=== PATIENT | male | born 1950 | race Two or more races ===

== ENCOUNTER 2017-02-23 02:34 | Inpatient (IN) | payer MEDICARE, MEDICAID ==
[~2017-02-23] VITALS: Ht 172.7 cm; Wt 63.5 kg
[~2017-02-23 02:34] MED LIST: AMAN100C16 PO
--- NOTE | 2017-02-23 02:40 | NUR ---
TO BED PT BIBA FROM [facility], PT C/O LOWER ABD PAIN X 14 HOURS PT DENIES N/V/D. NAD NOTED. VSS. BREATHING EVEN AND UNLABORED. PLACED ON CARDIAC AND VS MONITORING. GOWNED. COMFORT MEASURES RENDERED. AWAITING FOR ER MD GUTHRIE.
[2017-02-23] MEDS ORDERED: NYST15CR TP (03:03)
[2017-02-23] MEDS ORDERED: AMLO2.5T PO (03:03)
[2017-02-23] MEDS ORDERED: TAMS0.4C34 PO (03:03)
[2017-02-23] MEDS ORDERED: PROP10TA10 PO (03:03)
[2017-02-23] MEDS ORDERED: RANI150T8 PO (03:03)
[2017-02-23] MEDS ORDERED: FINA5TAB11 PO (03:03)
[2017-02-23] MEDS ORDERED: ONDANSETRON HCL/PF 4 MG/2 ML VIAL ONE (03:28)
[2017-02-23] MEDS ORDERED: MORPHINE SULFATE INJ 2 MG/ML DISP.SYRIN ONE (03:29)
[2017-02-23] MEDS ORDERED: MORPHINE SULFATE INJ 4 MG/ML DISP.SYRIN ONE (03:29)
[2017-02-23] MEDS ORDERED: MORPHINE SULFATE INJ 2 MG/ML DISP.SYRIN IV ONE (03:30)
[2017-02-23] MEDS ORDERED: ONDANSETRON HCL/PF 4 MG/2 ML VIAL IVP ONE (03:30)
--- NOTE | 2017-02-23 03:30 | NUR ---
started a saline lock on the rac g20, blood drawn and sent to lab.
--- NOTE | 2017-02-23 03:34 | NUR ---
medicated patient as ordered by Dr [place].
[2017-02-23 03:37] LABS: BASOPHILS # (AUTO) 0.1 /CMM (0.0-0.2); EOSINOPHILS # (AUTO) 0.4 /CMM (0.0-0.7); EOSINOPHILS % (AUTO) 5.6 % (0.0-6.0); HEMATOCRIT 44 % (39-51); HEMOGLOBIN 14.8 g/dL (13.5-17.5); LYMPHOCYTES # (AUTO) 1.2 /CMM (0.8-4.8); LYMPHOCYTES % (AUTO) 17.8 % (20.0-44.0); MEAN CORPUSCULAR HEMOGLOBIN 31 PG (26.0-33.0); MEAN CORPUSCULAR HGB CONC 34 g/dl (31.0-36.0); MEAN CORPUSCULAR VOLUME 92 fL (80-96); MONOCYTES # (AUTO) 0.5 /CMM (0.1-1.30); MONOCYTES % (AUTO) 7.9 % (2.0-12.0); NEUTROPHILS # (AUTO) 4.5 /CMM (1.8-8.9); NEUTROPHILS % (AUTO) 67.7 % (43.0-81.0); PLATELET COUNT (AUTO) 162 /CMM (150-450); RDW COEFFICIENT OF VARIATION 13.3 (11.5-15.0); WHITE BLOOD COUNT (AUTO) 6.6 K/uL (4.3-11.0)
[2017-02-23 03:45] LABS: APPEARANCE,URINE CLEAR (CLEAR); BILIRUBIN,URINE NEGATIVE (NEGATIVE); BLOOD, URINE NEGATIVE Ery/uL (NEGATIVE); COLOR,URINE YELLOW (YELLOW); KETONES,URINE NEGATIVE (NEGATIVE); LEUKOCYTE ESTERASE ,URINE TRACE (NEGATIVE); NITRITE, URINE NEGATIVE (NEGATIVE); PH,URINE 6.5 (5.0-8.0); PROTEIN,URINE NEGATIVE (NEGATIVE); UGLUCOSE NEGATIVE (NEGATIVE); UROBILINOGEN,URINE 0.2 EU/dL (0.2)
[2017-02-23 03:54] LABS: INR 0.99 (0.87-1.13); PROTHROMBIN TIME 10.6 SECS (9.5-12.7)
[2017-02-23 04:42] LABS: CALCIUM, SERUM 9.1 mg/dL (8.5-10.1); CREATININE 0.8 mg/dL (0.6-1.3)
[2017-02-23 04:48] LABS: ALBUMIN 3.9 g/dL (3.4-5.0); BILIRUBIN,DIRECT 0.1 mg/dL (0.0-0.2); BILIRUBIN,TOTAL 0.8 mg/dL (0.2-1.0)
[2017-02-23] MEDS ORDERED: IV NS 0.9% 1,000 ML BAG IV ONE (05:00)
[2017-02-23] MEDS ORDERED: IV NS 0.9% 250 ML IV ONE (05:03)
[2017-02-23] MEDS ORDERED: IOHEXOL-300 100 ML VIAL IV ONE (05:03)
[2017-02-23 05:16] LABS: BACTERIA,URINE None seen /HPF (None Seen); RBC,URINE NONE SEEN /HPF (0-2); SQUAMOUS EPITHELIAL CELL,UR Rare /HPF (None Seen)
[2017-02-23] MEDS ORDERED: TRIA15CR3 TP (07:26)
[2017-02-23] MEDS ORDERED: CARB-93 PO (07:26)
--- NOTE | 2017-02-23 08:30 | NUR ---
REPORT GIVEN TO SNOW CARPENTER FOR ADMISSION. PATIENT TRANSPORTED TO ROOM 324-2 VIA STRETCHER WITH EMT.
--- NOTE | 2017-02-23 08:40 | NUR ---
JAYDEN MS NOTES RECEIVED PATIENT FROM ER, PATIENT ON A GURNEY, AWAKE AND VERBALLY RESPONSIVE. PATIENT A/OX3, NO APPARENT DISTRESS NOTED, PATIENT DENIES PAIN AT THIS TIME. RESPIRATIONS EVEN AND UNLABORED, DENIES SOB. ALL NEEDS MET, ORIENTED TO UNIT. PATIENT WITH BP 0F 150/100 WILL F/U WITH AWAITING ADMISSION ORDERS FROM DR ARCINIEGA. Addendum: 02/23/17 at 1036 by SNOW BANDA RN SKIN CLEAR AND INTACT.
[2017-02-23 09:30] VITALS: BP 154/115
--- NOTE | 2017-02-23 10:20 | NUR ---
RN MS NOTES CALLED DR ARCINIEGA'S OFFICE, SPOKE TO ROYAL, SHE WILL LIAN FIGUEROA. AWAITING CALL BACK.
[2017-02-23] MEDS ORDERED: HYDROMORPHONE 1 MG/1 ML DISP.SYRIN IV PRN (13:00)
[2017-02-23] MEDS: PANTOPRAZOLE 40 MG VIAL IV SCH (14:39)
[2017-02-23] MEDS ORDERED: TRIAMCINOLONE ACETONIDE 0.025% 15 GM TUBE TP PRN (15:00)
[2017-02-23 15:36] LABS: LIPASE 82 U/L (73-393)
[2017-02-23 15:43] LABS: AMYLASE 37 U/L (25-115)
[2017-02-23 16:00] VITALS: BP 103/63
[2017-02-23] MEDS: PROPRANOLOL HCL 10 MG TABLET PO SCH (17:00)
[2017-02-23] MEDS ORDERED: GADOVERSETAMIDE 5 MMOL/10 ML VIAL IJ ONE (19:01)
[2017-02-23] MEDS ORDERED: GADOVERSETAMIDE 2.5 MMOL/5 ML VIAL IJ ONE (19:01)
[2017-02-23] MEDS: CARBIDOPA/LEVODOPA 25/100 MG 1 UDTAB PO SCH (19:04)
--- NOTE | 2017-02-23 19:10 | NUR ---
MS RN NOTES RECEIVED SITTING ON EDGE OF BED,NOTED INVOLUNTARY MOVEMENT OF BOTH ARMS,WITH KNOWN HX OF PARKINSON.APPEARS WEAK.ENCOURAGE TO USE CALL LIGHT FOR ASSISTANCE.BED ALARM TRIGGERED.SALINE LOCK RIGHT AC INTACT AND PATENT.CALL LIGHT IN REACH,NEEDS ANTICIPATED.
--- NOTE | 2017-02-23 19:24 | NUR ---
RN MS CLOSING NOTES PATIENT IN BED, VERBALLY RESPONSIVE. NO APPARENT DISTRESS NOTED, DENIES PAIN, DENIES SOB. ALL DUE MEDS GIVEN ALL NEEDS MET, CALL LIGHT WITHIN REACH. RAC IV LINE PATENT, MRI DONE. WILL ENDORSE CARE TO PM SHIFT.
[2017-02-23 20:00] VITALS: BP 112/77
--- NOTE | 2017-02-23 21:00 | NUR ---
MS RN NOTES MD VISIT SEEN BY DR DIAMOND.WITH NEW ORDERS NOTED AND CARRIED OUT.
--- NOTE | 2017-02-23 22:00 | NUR ---
MS RN NOTES DUE PO MEDS ADMINISTERED,TAKEN WELL.NEGATIVE FOR ASPIRATION
[2017-02-23] MEDS: ATORVASTATIN 10 MG TABLET PO SCH (22:07)
[2017-02-23] MEDS: TAMSULOSIN 0.4 MG CAP.SR.24H PO SCH (22:07)
[2017-02-23] MEDS: AMLODIPINE BESYLATE 2.5 MG TABLET PO SCH (22:08)
[2017-02-23] MEDS: FINASTERIDE (5 MG) 5 MG TABLET PO SCH (22:08)
--- NOTE | 2017-02-23 22:30 | NUR ---
MS RN NOTES FAMILY INFORMED ABOUT THE PLAN,PATIENT GOING FOR EGD TOMORROW.CONSENT SIGNED BY PATIENT.INSTRUCTED NPO AFTER MIDNIGHT.
[2017-02-24 06:22] LABS: BASOPHILS % (AUTO) 0.4 % (0.0-2.0); EOSINOPHILS # (AUTO) 0.4 /CMM (0.0-0.7); EOSINOPHILS % (AUTO) 6.1 % (0.0-6.0); HEMATOCRIT 41 % (39-51); HEMOGLOBIN 13.9 g/dL (13.5-17.5); LYMPHOCYTES # (AUTO) 1.3 /CMM (0.8-4.8); LYMPHOCYTES % (AUTO) 22.4 % (20.0-44.0); MEAN CORPUSCULAR HEMOGLOBIN 31 PG (26.0-33.0); MEAN CORPUSCULAR HGB CONC 34 g/dl (31.0-36.0); MEAN CORPUSCULAR VOLUME 92 fL (80-96); MONOCYTES # (AUTO) 0.6 /CMM (0.1-1.30); MONOCYTES % (AUTO) 9.8 % (2.0-12.0); NEUTROPHILS # (AUTO) 3.7 /CMM (1.8-8.9); NEUTROPHILS % (AUTO) 61.3 % (43.0-81.0); PLATELET COUNT (AUTO) 163 /CMM (150-450); RDW COEFFICIENT OF VARIATION 13.3 (11.5-15.0); RED BLOOD CELL COUNT(AUTO) 4.45 MIL/uL (4.5-6.0)
[2017-02-24 06:40] LABS: CALCIUM, SERUM 8.9 mg/dL (8.5-10.1); CREATININE 0.8 mg/dL (0.6-1.3); POTASSIUM 4.1 mmol/L (3.5-5.1)
--- NOTE | 2017-02-24 07:20 | NUR ---
MS RN OPENING NOTES RECEIVE PT FROM NIGHTSHIFT NURSE IN STABLE CONDITION. PT IS A/O X2-3, WITH PERIODS OF FORGETFULNESS. NO SOB OR SIGNS OF DISTRESS NOTED. BREATHING IS EVEN AND UNLABORED. PT. IS ON RA AND SATING WELL @98%. NPO DIET MAINTAINED SINCE MIDNIGHT FOR SCHEDULED EGD LATER THIS AFTERNOON. IV PRESENT IN RIGHT AC 20G. IV IS PATENT TO NS FLUSH AND INTACT. NO REDNESS OR SIGNS OF INFILTRATION NOTED. BED IN LOW LOCKED POSITION, SIDE RAILS UP X3, CALL LIGHT WITHIN EASY REACH. WILL CONTINUE TO MONITOR.
[2017-02-24 07:49] VITALS: BP 132/78
[2017-02-24] MEDS: PROPRANOLOL HCL 10 MG TABLET PO SCH ×3 (08:44→17:00)
[2017-02-24] MEDS: CARBIDOPA/LEVODOPA 25/100 MG 1 UDTAB PO SCH ×3 (08:44→17:00)
[2017-02-24] MEDS: PANTOPRAZOLE 40 MG VIAL IV SCH (09:15)
[2017-02-24] MEDS: NYSTATIN CREAM 15 GM TUBE TP SCH (09:16)
--- NOTE | 2017-02-24 09:26 | NUR ---
MS RN NOTES REQUEST FORM FOR THE PT'S COLONOSCOPY RESULTS WAS FAXED TO [facility]. SEVERAL ATTEMPTS AND CALLS HAVE BEEN MADE TO THEIR MEDICAL RECORDS DEPARTMENT IN REGARDS TO THESE RESULTS. NO ONE HAS RESPONDED TO MY FOLLOWUP CALLS OR MESSAGES.
[2017-02-24 16:01] VITALS: BP 140/82
--- NOTE | 2017-02-24 16:45 | NUR ---
MS RN NOTES PT. TAKEN DOWN FOR SCHEDULED EGD
--- NOTE | 2017-02-24 18:07 | NUR ---
MS RN NOTES PT. BACK FROM EGD PROCEDURE. ORDERS FROM DR. GARDINER NOTED. WILL CARRY OUT NEW ORDERS
--- NOTE | 2017-02-24 18:46 | NUR ---
MS RN CLOSING NOTES PT IN STABLE CONDITION AFTER EGD PROCEDURE. VITAL SIGNS WNL. DIET WAS ADVANCED TO 2G NA. PT IS TOLERATING DIET WELL. ALL NEEDS WERE MET DURING SHIFT AND ORDERS CARRIED OUT ACCORDINGLY. ALL SAFETY MEASURES IN PLACE. WILL ENDORSE TO NIGHTSHIFT NURSE FOR KATY
--- NOTE | 2017-02-24 19:35 | NUR ---
MS RN INITIAL NOTES REPORT WAS RECEIVED BY DANI. PT IS IN BED EATING DINNER. A/O X2, FORGETFUL. ABLE TO MAKE NEEDS KNOWN. BREATHING EVENLY AND UNLABORED AT ROOM AIR SATING AT 97%. PT IS S/P EGD, DENIES PAIN. IV ACCESS IS INTACT AND PATENT. BED IS IN LOW AND LOCKED POSITION, SIDE RAILS UP X3, CALL LIGHT WITHIN REACH. WILL CONTINUE TO MONITOR PT
[2017-02-24 20:00] VITALS: BP 104/60
[2017-02-24] MEDS: TAMSULOSIN 0.4 MG CAP.SR.24H PO SCH (21:18)
[2017-02-24] MEDS: ATORVASTATIN 10 MG TABLET PO SCH (21:18)
[2017-02-24] MEDS: FINASTERIDE (5 MG) 5 MG TABLET PO SCH (21:18)
[2017-02-24] MEDS: AMLODIPINE BESYLATE 2.5 MG TABLET PO SCH (21:26)
--- NOTE | 2017-02-24 21:30 | NUR ---
NORVASC WAS HELD, PT BP 104/60 PULSE 69
--- NOTE | 2017-02-25 06:20 | NUR ---
MS RN CLOSING NOTES PT IS IN BED RESTING. NO SIGNS OF SOB OR DISTRESS, BREATHING EVENLY AND UNLABORED ON ROOM AIR. DENIES PAIN. ALL NEEDS WERE ANTICIPATED AND MET. BED IS IN LOW AND LOCKED POSITION, CALL LIGHT IS WITHIN REACH. WILL ENDORSE TO DAY SHIFT.
--- NOTE | 2017-02-25 07:50 | NUR ---
RN OPENING NOTES RECEIVED PATIENT RESTING COMFORTABLY IN BED WITH EYES CLOSED. PATIENT IS EASILY AROUSABLE. PATIENT IS AOX2-3 WITH FORGETFULNESS. PATIENT HAS TREMORS D/T PARKINSON'S. PATIENT DENIES ANY PAIN AT THIS TIME. DENIES SOB. RESPIRATIONS APPEAR EVEN AND UNLABORED. NO S/S OF ACUTE DISTRESS. IV ACCES ON THE RIGHT FOREARM 22G. IV PATENT AND INTACT. NO S/S OF INFILTRATION. AWAITING EGD RESULTS. BED LOCKED IN THE LOWEST POSITION WITH SIDERAILS UP X2. CALL LIGHT WITHIN REACH. WILL CONTINUE TO MONITOR, ASSESS AND EDUCATE PATIENT THROUGHOUT SHIFT.
[2017-02-25 08:00] VITALS: BP 152/98
[2017-02-25] MEDS: CARBIDOPA/LEVODOPA 25/100 MG 1 UDTAB PO SCH ×3 (08:45→17:25)
[2017-02-25] MEDS: PANTOPRAZOLE 40 MG VIAL IV SCH (08:46)
[2017-02-25] MEDS: NYSTATIN CREAM 15 GM TUBE TP SCH (08:46)
[2017-02-25] MEDS: PROPRANOLOL HCL 10 MG TABLET PO SCH ×3 (08:46→17:26)
[2017-02-25 11:12] LABS: AFP, TUMOR MARKER 1.5 ng/mL (0.0-8.3)
--- NOTE | 2017-02-25 13:51 | NUR ---
RN NON ADMIN NOTES PATIENT BP 126/76 HR 56. HOLD MED IF HR <60.
--- NOTE | 2017-02-25 13:52 | NUR ---
RN NOTES PATIENT SEEN BY DR. ARCINIEGA. VERBAL ORDERS GIVEN TO BEGIN LOW MOLECULAR HEPARIN 1MEQ/KG. ORDER FOR 60MEQ Q12HR. WILL CARRY OUT ORDERS.
[2017-02-25 16:00] VITALS: BP 123/73
--- NOTE | 2017-02-25 16:25 | NUR ---
RN NOTES CALLED DR. ARCINIEGA TO VERIFY HEPARIN ORDERS. DR. ARCINIEGA DID NOT RETURN CALL BUT PLACED ORDER FOR LOVENOX 60MG Q12HR. WILL NOT CARRY OUT PREVIOUS VERBAL ORDER.
--- NOTE | 2017-02-25 19:24 | NUR ---
RN CLOSING NOTES PATIENT IS RESTING COMFORTABLE IN BED. PATIENT DENIES ANY PAIN. DENIES SOB. RESPIRATION EVEN AND UNLABORED. PATIENT IS AOX2-3 WITH FORGETFULNESS. PATIENT ABLE TO FOLLOW COMMANDS. ALL NEEDS MET DURRING SHIFT. ALL MEDS GIVEN APPROPRIATE. BED LOCKED IN THE LOWEST POSITION WITH SIDE RAILS UP X2. CALL LIGHT WITHIN REACH. REPORT TO BE GIVEN TO NIGHT RN FOR KATY.
--- NOTE | 2017-02-25 19:44 | NUR ---
MS/RN OPENING NOTES PATIENT IN BED, HOB ELEVATED, ALERT, ORIENTED X2. REQUIRE ASSISTANCE AND REMINDERS , ABLE TO WALK WITH ASSISTANCE, REMINDED TO USE CALL LIGHTS. WILL CONTINUE TO MONITOR. OFFERED FLUIDS.
[2017-02-25 20:00] VITALS: BP 113/71
[2017-02-25] MEDS: ENOXAPARIN SODIUM 60 MG/0.6 ML DISP.SYRIN SQ SCH (20:48)
[2017-02-25 21:04] VITALS: BP 113/71
[2017-02-25] MEDS: AMLODIPINE BESYLATE 2.5 MG TABLET PO SCH (21:06)
[2017-02-25] MEDS: TAMSULOSIN 0.4 MG CAP.SR.24H PO SCH (21:09)
[2017-02-25] MEDS: FINASTERIDE (5 MG) 5 MG TABLET PO SCH (21:09)
[2017-02-25] MEDS: ATORVASTATIN 10 MG TABLET PO SCH (21:15)
--- NOTE | 2017-02-26 07:25 | NUR ---
RN NOTES PT IS SLEEPING COMFORTABLY IN BED. ON RA, NO SIGNS OF DISTRESS OR SOB. IV ON RFA INTACT AND PATENT, SL. SAFETY MEASURES ARE IN PLACE, CALL LIGHT IS IN REACH. WILL CONTINUE TO MONITOR.
--- NOTE | 2017-02-26 07:38 | NUR ---
ms/rn opening notes patient in bed, resting comfortably w/ no s/s of discomfort. Able to sleep atleast 6 hours. endorse to am rn regarding shaylee. bed in lock position, call lights within reach. respiration even and unlabored.
[2017-02-26 08:00] VITALS: BP 166/88
[2017-02-26 08:22] VITALS: BP 166/88
[2017-02-26] MEDS: CARBIDOPA/LEVODOPA 25/100 MG 1 UDTAB PO SCH ×3 (08:30→16:25)
[2017-02-26] MEDS: PANTOPRAZOLE 40 MG VIAL IV SCH (08:30)
[2017-02-26] MEDS: PROPRANOLOL HCL 10 MG TABLET PO SCH ×3 (08:30→16:25)
[2017-02-26] MEDS: ENOXAPARIN SODIUM 60 MG/0.6 ML DISP.SYRIN SQ SCH ×2 (08:32→21:43)
[2017-02-26] MEDS: NYSTATIN CREAM 15 GM TUBE TP SCH (08:33)
[2017-02-26 16:00] VITALS: BP 155/72
--- NOTE | 2017-02-26 18:42 | NUR ---
RN NOTES PT IS SITTING COMFORTABLY IN BED, ALERT AND ORIENTED. NO SIGNS OF DISTRESS OR PAIN NOTED. PT ON RA, SATING 97, SOB, RESPIRATIONS EVEN AND UNLABORED. IV ON RFA INTACT AND PATENT. ALL MEDS WERE GIVEN ORDERED AND PT NEEDS MET. SAFETY MEASURES ARE IN PLACE AND CALL LIGHT IS IN REACH. WILL ENDORSE TO DOWEL INSERTING MACHINE OPERATOR RN FOR CONTINUITY OF CARE.
--- NOTE | 2017-02-26 19:25 | NUR ---
MS/RN NOTES RECEIVED PT. LYING IN BED. AWAKE, ALERT AND ORIENTED X2. BREATHING EVEN AND UNLABORED ON ROOM AIR. NO SOB, RESPIRATORY DISTRESS OR COMPLAINTS OF PAIN NOTED AT THIS TIME. PT. WITH RIGHT FOREARM 22 GAUGE IV SALINE LOCK PRESENT, PATENT AND INTACT. BED IN LOWEST POSITION, CALL LIGHT WITHIN REACH, SIDE RAILS UP X2, WILL CONTINUE TO MONITOR.
[2017-02-26 20:00] VITALS: BP 150/82
[2017-02-26] MEDS: FINASTERIDE (5 MG) 5 MG TABLET PO SCH (21:42)
[2017-02-26] MEDS: AMLODIPINE BESYLATE 2.5 MG TABLET PO SCH (21:42)
[2017-02-26] MEDS: ATORVASTATIN 10 MG TABLET PO SCH (21:42)
[2017-02-26] MEDS: TAMSULOSIN 0.4 MG CAP.SR.24H PO SCH (21:42)
--- NOTE | 2017-02-27 06:34 | NUR ---
MS/RN NOTES PT. IS LYING IN BED RESTING. BREATHING EVEN AND UNLABORED ON ROOM AIR. NO SOB, RESPIRATORY DISTRESS OR COMPLAINTS OF PAIN NOTED AT THIS TIME. PT. WITH RIGHT FOREARM 22 GAUGE IV SALINE LOCK PRESENT, PATENT AND INTACT. ALL PT. NEEDS MET. BED IN LOWEST POSITION, CALL LIGHT WITHIN REACH, SIDE RAILS UP X2, WILL ENDORSE TO DAYSHIFT NURSE FOR CONTINUITY OF CARE.
--- NOTE | 2017-02-27 07:10 | NUR ---
RN MS NOTES PATIENT ALERT AND ORIENTED X2 WITH EPISODES OF CONFUSION, NO S/SX OF DISTRESS NOTED, DENIES PAIN OR DISCOMFORT NOTED, PIV PATENT AND FLUSHES WELL, NEEDS ATTENDED AND ANTICIPATED, CALL LIGHT WITHIN REACH, BED LOW AND LOCKED, SIDERAILS X2 UP, BED ALARM ON, WILL CONTINUE TO MONITOR.
[2017-02-27 08:00] VITALS: BP 93/57
[2017-02-27] MEDS: PROPRANOLOL HCL 10 MG TABLET PO SCH ×3 (08:41→16:53)
[2017-02-27] MEDS: PANTOPRAZOLE 40 MG VIAL IV SCH (08:41)
[2017-02-27] MEDS: CARBIDOPA/LEVODOPA 25/100 MG 1 UDTAB PO SCH ×3 (08:41→16:52)
[2017-02-27] MEDS: ENOXAPARIN SODIUM 60 MG/0.6 ML DISP.SYRIN SQ SCH ×2 (08:46→21:27)
[2017-02-27] MEDS: NYSTATIN CREAM 15 GM TUBE TP SCH (08:48)
[2017-02-27 16:00] VITALS: BP 148/60
--- NOTE | 2017-02-27 18:26 | NUR ---
RN MS NOTES PATIENT IS RESTING COMFORTABLY IN BED. DENIES PAIN, NO SOB NOTED. RESPIRATION EVEN AND UNLABORED. PATIENT IS AOX2-3 WITH FORGETFULNESS. PATIENT ABLE TO FOLLOW COMMANDS. ALL NEEDS ATTENDED AND MET, ALL MEDS GIVEN APPROPRIATE. BED LOCKED IN THE LOWEST POSITION WITH SIDE RAILS UP X2. CALL LIGHT WITHIN REACH. WILL ENDORSE TO SUPERVISOR PRESSING DEPARTMENT FOR KATY.
--- NOTE | 2017-02-27 19:30 | NUR ---
MS RN OPENING NOTES: PATIENT IN BED, AOX2, ON ROOM AIR, BREATHING EVEN AND UNLABORED. BREATH SOUNDS CLEAR TO AUSCULTATION. APPEARS CALM AND DENIES PAIN. PIV OVER RFA G22 INTACT AND PATENT TO FLUSH. PROVIDED FOR COMFORT AND SAFETY. BED IN LOWEST AND LOCKED POSITION, SIDERAILS UP X2. CALL LIGHT WITHIN REACH. WILL CONT TO MONITOR.
[2017-02-27 20:00] VITALS: BP 139/78
[2017-02-27] MEDS: TAMSULOSIN 0.4 MG CAP.SR.24H PO SCH (21:26)
[2017-02-27] MEDS: ATORVASTATIN 10 MG TABLET PO SCH (21:26)
[2017-02-27] MEDS: FINASTERIDE (5 MG) 5 MG TABLET PO SCH (21:27)
--- NOTE | 2017-02-27 22:00 | NUR ---
RN NOTES: PATIENT'S HR IS LOW AT 42/MIN (APICAL, ONE FULL MINUTE CHECKED). PATIENT IS ASYMPTOMATIC, NO DIZZINESS OR HEADACHE NOTED. BP: 139/78, HR: 42, TEMP 97.6, RR: 18, O2 SAT AT 98%. CHARGE NURSE MADE AWARE AND PLACED ON TEMPORARY TELE MONITORING. HELD AMLODIPINE PO SCHEDULED FOR THIS TIME. WILL RECHECK VS.
[2017-02-27 23:30] VITALS: BP 137/79
[2017-02-27] MEDS: AMLODIPINE BESYLATE 2.5 MG TABLET PO SCH (23:30)
--- NOTE | 2017-02-27 23:42 | NUR ---
RN NOTES: RECHECKED PATIENT'S BP AT THIS TIME AT 137/74, HR AT 55. OFFERED AMLODIPINE 2.5 MG PO AT THIS TIME, BUT PATIENT REFUSED. EXPLAINED RISKS AND BENEFITS, PATIENT STILL REFUSED, SAYING, "I NEED TO SLEEP".
--- NOTE | 2017-02-28 06:26 | NUR ---
MS RN CLOSING NOTES: PATIENT IN BED, AOX2, ON ROOM AIR, BREATHING EVEN AND UNLABORED. APPEARS CALM AND IN NO DISTRESS. DENIES PAIN. PIV OVER RFA G22 INTACT AND PATENT TO FLUSH. PATIENT'S HR IS STILL AT 55-58, HOWEVER, PATIENT IS ASYMPTOMATIC. DUE MEDS GIVEN. PROVIDED FOR COMFORT AND SAFETY. WILL ENDORSE TO AM RN FOR KATY.
--- NOTE | 2017-02-28 07:45 | NUR ---
AM RN NOTE Received patient awake, A/O X2 verbally responsive. Denies any pain or discomfort at this time. Resp even and non-labored. IV site intact and patent. Will continue to monitor. Bed in low locked position.
[2017-02-28 08:00] VITALS: BP 140/89
[2017-02-28] MEDS: PANTOPRAZOLE 40 MG VIAL IV SCH (08:33)
[2017-02-28] MEDS: CARBIDOPA/LEVODOPA 25/100 MG 1 UDTAB PO SCH ×3 (08:35→16:40)
[2017-02-28] MEDS: ENOXAPARIN SODIUM 60 MG/0.6 ML DISP.SYRIN SQ SCH ×2 (08:40→21:40)
[2017-02-28] MEDS: NYSTATIN CREAM 15 GM TUBE TP SCH (08:42)
[2017-02-28] MEDS: PROPRANOLOL HCL 10 MG TABLET PO SCH ×3 (08:42→16:40)
[2017-02-28 16:00] VITALS: BP 130/80
--- NOTE | 2017-02-28 16:14 | NUR ---
AM RN NOTE Patient noted with unsteady gait, notified Dr. Fili Hicks with new orders for PT eval and CM for acute rehab, orders noted and carried out. Dr. Fili Hicks made aware that Inderal was held this AM and noon time due to low pulse with NNO. Family at bedside and made aware about new orders.
--- NOTE | 2017-02-28 18:32 | NUR ---
AM RN NOTE Patient resting in his bed, no acute distress noted. Called [facility] today for medical records no response. Will endorse in 24 hr report to F/U in am. All needs met and attended in timely manner. Will endorse care to next shift.
--- NOTE | 2017-02-28 20:00 | NUR ---
ms/rn opening notes Patient in bed, alert, oriented x2. resting comfortably in bed, respirations even and unlabored. received endorsement from am rn, will continue to provide care.call lights within reach. will continue to monitor.
[2017-02-28] MEDS: TAMSULOSIN 0.4 MG CAP.SR.24H PO SCH (21:37)
[2017-02-28] MEDS: FINASTERIDE (5 MG) 5 MG TABLET PO SCH (21:37)
[2017-02-28] MEDS: ATORVASTATIN 10 MG TABLET PO SCH (21:38)
[2017-02-28] MEDS: AMLODIPINE BESYLATE 2.5 MG TABLET PO SCH (21:39)
[2017-02-28 23:44] VITALS: BP 140/81
--- NOTE | 2017-03-01 06:47 | NUR ---
324-1 MS/RN CLOSING NOTES PATIENT IN BED , RESTING COMFORTABLY IN BED, RESPIRATION EVEN AND UNLABORED, SKIN WARM TO TOUCH, NO S/S OF DISCOMFORT, CALL LIGHTS WITHIN REACH,WILL ENDORSE TO AM RN KATY.
[2017-03-01 08:00] VITALS: BP 141/78
--- NOTE | 2017-03-01 08:12 | NUR ---
RN OPENING NOTES RECEIVED PATIENT RESTING COMFORTABLY IN BED WITH EYES CLOSED. PATIENT IS EASILY AROUSABLE. PATIENT IS AOX2-3. PATIENT DENIES ANY PAIN AT THIS TIME. DENIES SOB. RESPIRATIONS APPEAR EVEN AND UNLABORED. NO S/S OF ACUTE DISTRESS. IV ACCES ON THE RIGHT FOREARM 22G. IV PATENT AND INTACT. NO S/S OF INFILTRATION. BED LOCKED IN THE LOWEST POSITION WITH SIDERAILS UP X2. CALL LIGHT WITHIN REACH. WILL CONTINUE TO MONITOR, ASSESS AND EDUCATE PATIENT THROUGHOUT SHIFT.
[2017-03-01] MEDS: PANTOPRAZOLE 40 MG VIAL IV SCH (08:41)
[2017-03-01] MEDS: CARBIDOPA/LEVODOPA 25/100 MG 1 UDTAB PO SCH ×3 (08:42→17:32)
[2017-03-01] MEDS: PROPRANOLOL HCL 10 MG TABLET PO SCH ×3 (08:42→17:35)
[2017-03-01] MEDS: ENOXAPARIN SODIUM 60 MG/0.6 ML DISP.SYRIN SQ SCH ×3 (08:43→21:22)
[2017-03-01] MEDS: NYSTATIN CREAM 15 GM TUBE TP SCH (08:46)
--- NOTE | 2017-03-01 10:56 | NUR ---
RN NOTES VERBAL ORDERS GIVEN PER DR. CORI RIOJAS FOR CT GUIDED BIOPSY PANCREATIC MASS. CONSENT TO BE OBTAINED FOR PROCEDURE. WILL CARRY OUT ORDERS GIVEN.
--- NOTE | 2017-03-01 14:07 | NUR ---
RN NON ADMIN NOTES INDERAL NOT ADMINISTERED D/T HR 54.
[2017-03-01 15:45] LABS: BASOPHILS % (AUTO) 0.5 % (0.0-2.0); EOSINOPHILS # (AUTO) 0.3 /CMM (0.0-0.7); EOSINOPHILS % (AUTO) 5.1 % (0.0-6.0); HEMATOCRIT 43 % (39-51); HEMOGLOBIN 14.5 g/dL (13.5-17.5); LYMPHOCYTES # (AUTO) 1.2 /CMM (0.8-4.8); LYMPHOCYTES % (AUTO) 23.5 % (20.0-44.0); MEAN CORPUSCULAR HEMOGLOBIN 31 PG (26.0-33.0); MEAN CORPUSCULAR HGB CONC 34 g/dl (31.0-36.0); MEAN CORPUSCULAR VOLUME 91 fL (80-96); MONOCYTES # (AUTO) 0.4 /CMM (0.1-1.30); MONOCYTES % (AUTO) 8.7 % (2.0-12.0); NEUTROPHILS # (AUTO) 3.2 /CMM (1.8-8.9); NEUTROPHILS % (AUTO) 62.2 % (43.0-81.0); PLATELET COUNT (AUTO) 172 /CMM (150-450); RDW COEFFICIENT OF VARIATION 13.3 (11.5-15.0); RED BLOOD CELL COUNT(AUTO) 4.69 MIL/uL (4.5-6.0); WHITE BLOOD COUNT (AUTO) 5.1 K/uL (4.3-11.0)
[2017-03-01 16:00] VITALS: BP 125/73
[2017-03-01 16:13] LABS: INR 1.06 (0.87-1.13); PROTHROMBIN TIME 11.4 SECS (9.5-12.7)
--- NOTE | 2017-03-01 17:35 | NUR ---
RN CLOSING NOTES PATIENT RESTING COMFORTABLY IN BED. PATIENT IS AOX2 FORGETFUL AND CONFUSED. PATIENT DENIES ANY PAIN AT THIS TIME. DENIES SOB. RESPIRATIONS APPEAR EVEN AND UNLABORED. NO S/S OF ACUTE DISTRESS. IV ACCES ON THE RIGHT FOREARM 22G. IV PATENT AND INTACT. NO S/S OF INFILTRATION. CONSENT SIGNED FOR CT GUIDED BIOPSY OF PANCREATIC MASS. CONSENT WITNESSED BY TWO RN'S BENJIE AND ONESIMO. CONSENT GIVEN BY PATIENT SON CAMERON MCCORD. ALL NEEDS MET. ALL MEDS GIVEN APPROPRIATE. BED LOCKED IN THE LOWEST POSITION WITH SIDERAILS UP X2. CALL LIGHT WITHIN REACH. REPORT GIVEN TO NIGHT RN FOR CONTINUATION OF CARE.
--- NOTE | 2017-03-01 19:00 | NUR ---
RN NOTES PT IS STABLE AND RESTING IN BED, A/OX2. NO S/S OF DISTRESS OR SOB. SAFETY MEASURES IN PLACE, ON LOW BED TO ENSURE SAFETY. CALL LIGHT WITHIN REACH. WILL CONTINUE TO MONITOR.
[2017-03-01 20:00] VITALS: BP 113/54
[2017-03-01] MEDS: ATORVASTATIN 10 MG TABLET PO SCH (21:21)
[2017-03-01] MEDS: FINASTERIDE (5 MG) 5 MG TABLET PO SCH (21:27)
[2017-03-01] MEDS: AMLODIPINE BESYLATE 2.5 MG TABLET PO SCH (21:27)
[2017-03-01] MEDS: TAMSULOSIN 0.4 MG CAP.SR.24H PO SCH (21:27)
--- NOTE | 2017-03-01 22:00 | NUR ---
LOVENOX SQ 60 MG HELD FOR PROCEDURE TOMORROW FOR CT GUIDED BIOPSY OF PANCREATIC MASS Addendum: 03/02/17 at 0625 by JUSTA ACOSTA RN PLACED A CALL TO METALLOGRAPHER OF BAILEY STARK SPOKE TO MS. HART, NURSE PRACTIONER AGREED TO HOLD LOVENOX 60 MG SQ FOR 03/01/2017 NOTED AND CARRIED OUT
--- NOTE | 2017-03-02 06:26 | NUR ---
MS RN CLOSING NOTES PATIENT COMFORTABLY ASLEEP AND EASILY AWAKEN, HEAD OF BED ELEVATED FOR BETTER LUNG EXPANSION AND GOOD CIRCULATION. NOT IN ACUTE RESPIRATORY DISTRESS, IN STABLE CONDITION. TOLERATING ROOM AIR 02 SAT AT 98% R.A MAINTAINS NPO AT MIDNIGHT, RFA 22 G IV SITE NO S/S OF INFILTRATED PATENT AND FLUSHED, RESPIRATIONS EVEN AND UNLABORED, FREQUENT VISUAL CHECK DONE FOR SAFETY EVERY 2 HOURS. NURSING CARE RENDERED, NEEDS ATTENDED AND ANTICIPATED, KEPT CLEAN AND DRY AND COMFORTABLE, GOOD SKIN CARE PROVIDED. OFFLOAD AT ALL TIMES. SAFE HAZARD FREE ENVIRONMENT PROVIDED. CALL LIGHT WITHIN EASY TO REACH, ON LOW BED AT ALL TIMES TO ENSURE SAFETY, WILL ENDORSE TO THE NEXT SHIFT CONTINUE PLAN OF CARE
[2017-03-02 08:00] VITALS: BP 145/80
--- NOTE | 2017-03-02 08:05 | NUR ---
MS/RN NOTES PATIENT RESTING IN BED AWAKE AND ORIENTED X4, STABLE, NO FORM OF DISTRESS NOTED. DENIES PAIN OR DISCOMFORT AT THIS TIME. AWAITING ON CT NEEDLE BIPOSY OF PANCREATIC MASS, NPO STATUS. IV TO RIGHT FA INTACT AND PATENT, H/L. SAFETY MEASURES RENDERED, INSTRUCTED TANK CAR CLEANER LIGHT USE AND IMPLEMENTED SAFETY PRECAUTIONS. PATIENT VERBALIZED UNDERSTANDING OF INSTRUCTIONS.
[2017-03-02] MEDS: PROPRANOLOL HCL 10 MG TABLET PO SCH ×4 (09:00→17:00)
[2017-03-02] MEDS ORDERED: NALOXONE PREFILLED SYRINGE 2 MG/2 ML SYRINGE IV ONE (09:00)
[2017-03-02] MEDS ORDERED: MIDAZOLAM HCL 5MG/ML VIAL 25 MG/5 ML VIAL IV ONE (09:00)
[2017-03-02] MEDS ORDERED: FENTANYL PF 250MCG/5ML AMPUL IV ONE (09:00)
[2017-03-02] MEDS ORDERED: LIDOCAINE HCL/PF 1% 30 ML SDV ONE (09:14)
--- NOTE | 2017-03-02 10:11 | NUR ---
MS/RN NOTE PATIENT TAKEN DOWN FOR CT BIOPSY OF THE PANCREAS
[2017-03-02] MEDS ORDERED: IV NS 0.9% 250 ML IV ONE (10:45)
[2017-03-02] MEDS: CARBIDOPA/LEVODOPA 25/100 MG 1 UDTAB PO SCH ×3 (12:13→17:00)
[2017-03-02] MEDS: PANTOPRAZOLE 40 MG VIAL IV SCH (12:32)
--- NOTE | 2017-03-02 14:41 | NUR ---
ms/rn notes patient back from ct biopsy in recovery stage of sedation . stable, vital signs within normal limits. patient alert able to make needs met. no new orders at this time. to continue npo until dinner 1700. patient will be monitored closely and accordingly
--- NOTE | 2017-03-02 15:20 | NUR ---
MS/RN NOTES PATIENT OOB WITH PHYSICAL THERAPY, AMBULATORY WITH WALKER AND ASSIST. UNSTEADY. INSTRUCTED ON SAFETY MEASURES, BED ALARM ON.
[2017-03-02 16:05] VITALS: BP 150/92
[2017-03-02] MEDS: NYSTATIN CREAM 15 GM TUBE TP SCH (16:40)
--- NOTE | 2017-03-02 18:52 | NUR ---
MS/RN NOTES PATIENT RESTING IN BED COMFORTABLY, NO SIGNIFICANT CHANGES IN CONDITION. CT BIOPSY OF PANCREAS DONE RESULTED AND NOTIFIED TO MD. ALL DUE MEDICATIONS GIVEN, ALL NEEDS MET AND ATTENDED. PATIENT KEPT CLEAN AND DRY. OOB WITH PHYSICAL THERAPY. DISCUSSED PLAN OF CARE WITH PATIENT AND PHYSICIAN. SAFETY MEASURES RENDERED, CALL LIGHT PLACED WITHIN REACH. WILL ENDORSE CARE TO CREDIT DIRECTOR FOR KATY.
--- NOTE | 2017-03-02 19:20 | NUR ---
RN OPEN NOTES RECEIVED PATIENT AWAKE IN BED. A/O X2. NO SIGNS OF DISTRESS OR DISCOMFORT. BREATHING EVEN AND UNLABORED. IV ACCESS IN RFA PATENT AND INTACT, NO SIGNS OF REDNESS OR INFILTRATION. BED IN LOW LOCKED POSITION WITH SIDE RAILS X2. CALL LIGHT WITHIN REACH. WILL CONTINUE TO MONITOR.
[2017-03-02 20:00] VITALS: BP 114/71
[2017-03-02] MEDS: TAMSULOSIN 0.4 MG CAP.SR.24H PO SCH (21:13)
[2017-03-02] MEDS: ATORVASTATIN 10 MG TABLET PO SCH (21:14)
[2017-03-02] MEDS: FINASTERIDE (5 MG) 5 MG TABLET PO SCH (21:14)
[2017-03-02] MEDS: AMLODIPINE BESYLATE 2.5 MG TABLET PO SCH (21:14)
--- NOTE | 2017-03-03 06:56 | NUR ---
RN CLOSING NOTES PATIENT RESTING IN BED, EASILY AROUSABLE TO NAME. A/O X2. NO SIGNS OF DISTRESS OR DISCOMFORT. BREATHING EVEN AND UNLABORED. IV ACCESS IN RFA PATENT AND INTACT, NO SIGNS OF REDNESS OR INFILTRATION. ALL NEEDS MET. NO SIGNIFICANT CHANGES THROUGH THE NIGHT. BED IN LOW LOCKED POSITION WITH SIDE RAILS X2. CALL LIGHT WITHIN REACH. WILL ENDORSE TO AM SHIFT FOR KATY.
[2017-03-03 07:01] LABS: AMYLASE 32 U/L (25-115); LIPASE 78 U/L (73-393)
--- NOTE | 2017-03-03 07:30 | NUR ---
MS RN OPENING NOTE PATIENT IS ALERT AND ORIENTED x2. NO PAIN STATED AT THIS TIME. NO SOB OR DISTRESS NOTED. CALL LIGHT WITHIN REACH. SAFETY MEASURES IMPLEMENTED. ABLE TO COMMUNICATE NEEDS. AMBULATORY WITH ASSISTANCE. O2 SAT AT 95% ON ROOM AIR. IV INTACT AND PATENT, NO REDNESS OR SWELLING NOTED, FLUSHES WELL. ON RIGHT FOREARM 22G. LABS DONE THIS MORNING, AWAITING RESULTS.S/P CT AND US GUIDED BIOPSY. WILL CONTINUE TO MONITOR
[2017-03-03 08:00] VITALS: BP 138/94
[2017-03-03] MEDS: CARBIDOPA/LEVODOPA 25/100 MG 1 UDTAB PO SCH ×2 (08:30→13:00)
[2017-03-03 08:32] VITALS: BP 138/94
[2017-03-03] MEDS: PANTOPRAZOLE 40 MG VIAL IV SCH (08:32)
[2017-03-03] MEDS: PROPRANOLOL HCL 10 MG TABLET PO SCH ×2 (08:32→13:00)
[2017-03-03] MEDS: NYSTATIN CREAM 15 GM TUBE TP SCH (08:37)
--- NOTE | 2017-03-03 16:45 | NUR ---
MS WATER TESTER NOTE PATIENT IS ALERT AND ORIENTED x2. NO PAIN AT THIS TIME. NO SOB OR DISTRESS NOTED. CALL LIGHT WITHIN REACH AT ALL TIMES. SAFETY MEASURES IMPLEMENTED. ABLE TO COMMUNICATE NEEDS. IV REMOVED, SKIN INTACT. ALL DUE MEDICATIONS GIVEN ORDERED BY MD. GAVE REPORT TO JAYDEN MORTON BEAM DYER RECESSED VAT AT [facility]. ALL BELONGINGS WITH PATIENT. ALL DISCHARGE INSTRUCTIONS GIVEN TO RN BEAM DYER RECESSED VAT. CAMERON-SON IS AWARE OF DISCHARGE AND TRANSFER. LEFT VIA AMBULANCE.
--- NOTE | 2017-03-03 18:45 | NUR ---
RN NOTE NOTIFIED SON-CAMERON MCCORD THAT PATIENT'S BELONGINGS WERE LEFT IN PATIENT'S ROOM.SON WILL PICK IT UP SOON POSSIBLE. [phone]
== END 2017-03-03 16:50 | DRG 435 ==
LOC: ER 02:43 → MED 08:16
PROVIDERS: ADMIT Internal Medicine; ATTEND Internal Medicine
PROC: 0DB68ZX Excision of Stomach, Via Natural or Artificial Opening Endoscopic, Diagnostic (ICD-10-PCS; principal; 2017-02-24 17:40)
PROC: 0FBG3ZX Excision of Pancreas, Percutaneous Approach, Diagnostic (ICD-10-PCS; 2017-03-02)
DX: C25.9 Malignant neoplasm of pancreas, unspecified (principal); I26.99 Other pulmonary embolism without acute cor pulmonale; D68.59 Other primary thrombophilia; G20 Parkinson's disease; I10 Essential (primary) hypertension; K21.9 Gastro-esophageal reflux disease without esophagitis; Z79.01 Long term (current) use of anticoagulants; I25.10 Atherosclerotic heart disease of native coronary artery without angina pectoris; K59.00 Constipation, unspecified; N40.0 Benign prostatic hyperplasia without lower urinary tract symptoms; Z79.899 Other long term (current) drug therapy; Z82.0 Family history of epilepsy and other diseases of the nervous system; Z87.891 Personal history of nicotine dependence; Z86.711 Personal history of pulmonary embolism; K29.70 Gastritis, unspecified, without bleeding; R26.9 Unspecified abnormalities of gait and mobility
CPT/HCPCS: 36415; 71250-TC; 74183-TC; 76942-TC; 77012-TC; 80048-TC; 80076-TC; 81000-TC; 82105; 82150-TC; 83690-TC; 85025-TC; 85610-TC; 85730-TC; 86301; 87081-TC; 88305-TC; 88313-TC; 88342; 97116-TC; 97530-TC; A4606; A9579; C9113; J1170; J1650; J2250; J2270; J2310; J2405; J2704; J3010; J3490; J7040; J7050; Q9967; Z7610